=== PATIENT | female | born 1995 | race Caucasian/White ===

== ENCOUNTER 2018-02-19 12:46 | Emergency (ER) | payer BC ==
[~2018-02-19 12:46] MED LIST: AMOX-559 PO; HYDR-4309 PO; IBUP600T22 PO; PRED-1 PO; PROM-110 PO
--- NOTE | 2018-02-19 13:00 | ER Report ---
History and Physical Time Seen By MD: 13:00 Hx. of Stated Complaint: pt reports she ran into a pole on Sunday, no loc. pt reports today during her exam she started having "a migraine, neck pain, r hand/forearm numbness". HPI/ROS CHIEF COMPLAINT: Headache, neck pain, spasm in the right arm HISTORY OF PRESENT ILLNESS: 22-year-old female patient presents to emergency room with complaint of headache, neck pain and spasm in the right arm. 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 She had to run and grab something while the lights were off. All she did that she ran into a door, hit her to the left eyebrow and left cheek. Patient states that she has had pain over the weekend. She states that it was worse when she would scratch upper face. States that otherwise she felt fine. She denies having any dizziness, nausea. Patient states that she was taking a test today. She states while she stayed test her head started to hurt, her neck started to hurt, she started to have numbness and tingling in her hand which seemed to radiate up to her forearm. She states that she also has noticed that her hands are spasming. REVIEW OF SYSTEMS: Respiratory: No cough, no dyspnea. Cardiovascular: No chest pain, no palpitations. Gastrointestinal: No vomiting, no abdominal pain. Musculoskeletal: As noted above Allergies: Coded Allergies: No Known Drug Allergies (Unverified , 02/19/18) Home Meds No Active Prescriptions or Reported Meds Past Medical/Surgical History Patient denies any pertinent medical or surgical history. Reviewed Nurses Notes: Yes Hx Smoking: No Exposure to Second Hand Smoke?: No Hx Substance Use Disorder: No Constitutional Vital Sign - Last 24 Hours 02/19/18 02/19/18 12:52 15:15 Temp 97.8 Pulse 72 75 Resp 16 16 B/P (MAP) 128/71 106/61 (76) Pulse Ox 94 94 O2 Delivery Room Air Room Air Physical Exam General Appearance: The patient is alert, has no immediate need for airway protection and no current signs of toxicity. Eyes: Pupils equal and round no injection. Extra ocular movements intact. Respiratory: Chest is non tender, lungs are clear to auscultation. Cardiac: regular rate and rhythm Gastrointestinal: Abdomen is soft and non tender, no masses, bowel sounds normal. Musculoskeletal: Neck: Neck is supple and non tender. Extremities have full range of motion and are non tender. Skin: No rashes or lesions. Neuro: Patient is alert and oriented 4, cranial nerves II-12 grossly intact. Patient was able to complete 3 word recall 3/3 at zero minutes. Patient refused serial sevens. DIFFERENTIAL DIAGNOSIS: After history and physical exam differential diagnosis was considered for head injury including but not limited to concussion, skull fracture, intraparenchymal contusion, subarachnoid, subdural and epidural hematoma. Medical Decision Making Data Points Laboratory Hematology Test 02/19/18 13:19 Urine HCG, Qualitative Negative (NEGATIVE) Chemistry Test 02/19/18 13:19 Urine HCG, Qualitative Negative (NEGATIVE) Urinalysis Test 02/19/18 13:19 Urine HCG, Qualitative Negative (NEGATIVE) EKG/Imaging Imaging EXAMINATION: CT HEAD AND CERVICAL SPINE WITHOUT CONTRAST COMPARISON: None available HISTORY: head injury with muscle spasm PROCEDURE: Noncontrast CT from the vertex through the skull base and multiplanar noncontrast cervical spine. One of the following dose optimization techniques was utilized in the performance of this exam: Automated exposure control; adjustment of the mA and/or kV according to the patient's size; or use of an iterative reconstruction technique. Specific details can be referenced in the facility's radiology CT exam operational policy. FINDINGS: CT head without contrast: Brain volume: Age-appropriate. Hemorrhage/extra-axial fluid: Left anterior middle cranial fossa 2.4 x 1.7 x 1.2 cm simple appearing cystic fluid collection is most consistent with a small arachnoid cyst. No intracranial hemorrhage. Mass effect/midline shift/edema: None. Ischemia: Solo-white differentiation is preserved. Ventricles and basal cisterns: Within normal limits. Posterior fossa: Negative. Vessels: Negative. Calvarium, skull base, and scalp: Negative. Visualized sinuses and orbits: Left maxillary sinus frothy fluid, likely inflammatory/infectious. Orbital contents are within normal limits. No fracture of the visualized maxillofacial structures. CT cervical spine without contrast: Alignment: Within normal limits. Cranio-cervical junction: Within normal limits. Vertebral bodies: Within normal limits. Posterior elements: Negative. Disc spaces: Negative. Hardware: None. Soft tissues: Negative. Visualized upper chest: Negative. IMPRESSION: 1. No evidence of acute intracranial pathology. 2. No cervical spine fracture or malalignment. 3. Maxillary sinus complex fluid suggestive of inflammation. Report Dictated By: Mahesh Rodriguez MD at 02/19/2018 2:27 PM Report E-Signed By: Mahesh Rodriguez MD at 02/19/2018 2:35 PM EXAMINATION: CT HEAD AND CERVICAL SPINE WITHOUT CONTRAST COMPARISON: None available HISTORY: head injury with muscle spasm PROCEDURE: Noncontrast CT from the vertex through the skull base and multiplanar noncontrast cervical spine. One of the following dose optimization techniques was utilized in the performance of this exam: Automated exposure control; adjustment of the mA and/or kV according to the patient's size; or use of an iterative reconstruction technique. Specific details can be referenced in the facility's radiology CT exam operational policy. FINDINGS: CT head without contrast: Brain volume: Age-appropriate. Hemorrhage/extra-axial fluid: Left anterior middle cranial fossa 2.4 x 1.7 x 1.2 cm simple appearing cystic fluid collection is most consistent with a small arachnoid cyst. No intracranial hemorrhage. Mass effect/midline shift/edema: None. Ischemia: Solo-white differentiation is preserved. Ventricles and basal cisterns: Within normal limits. Posterior fossa: Negative. Vessels: Negative. Calvarium, skull base, and scalp: Negative. Visualized sinuses and orbits: Left maxillary sinus frothy fluid, likely inflammatory/infectious. Orbital contents are within normal limits. No fracture of the visualized maxillofacial structures. CT cervical spine without contrast: Alignment: Within normal limits. Cranio-cervical junction: Within normal limits. Vertebral bodies: Within normal limits. Posterior elements: Negative. Disc spaces: Negative. Hardware: None. Soft tissues: Negative. Visualized upper chest: Negative. IMPRESSION: 1. No evidence of acute intracranial pathology. 2. No cervical spine fracture or malalignment. 3. Maxillary sinus complex fluid suggestive of inflammation. Report Dictated By: Mahesh Rodriguez MD at 02/19/2018 2:27 PM Report E-Signed By: Mahesh Rodriguez MD at 02/19/2018 2:35 PM ED Course/Re-evaluation ED Course Patient was admitted to an exam room, history and physical were obtained. Differential diagnoses were considered. On examination patient is alert and oriented 4, cranial nerves II through XII grossly intact. A urine hCG was done , a CT scan of the head and cervical spine were done. The results were negative. Patient also had a negative hCG. I discussed findings with patient. I believe she does have a concussion. She states she will be traveling for a tour. I encouraged her to get plenty of rest while she is traveling. She is to limit her activity by pain. She is to follow-up with primary care provider in the next week as any concerns. Patient verbalized understanding and agreement with plan. Patient will be discharged at this time. Decision to Disposition Date: February 19, 2018 Decision to Disposition Time: 14:52 Depart Departure Latest Vital Signs Vital Signs Date Time Temp Pulse Resp B/P (MAP) Pulse Ox O2 Delivery O2 Flow Rate FiO2 02/19/18 15:15 75 16 106/61 (76) 94 Room Air 02/19/18 12:52 97.8 Impression: Primary Impression: Acute head injury without loss of consciousness Additional Impression: Mild concussion Condition: Improved Disposition: HOME OR SELF-CARE New Scripts No Active Prescriptions or Reported Meds Patient Instructions: Concussion (ED) Additional Instructions: Get plenty of rest. Limit activity by pain. Limit TV and computer time. Monitor for confusion, increased irritability, uncontrollable vomiting, worsening headache or difficulty to arouse. Return to the ER if those are to occur. Follow up with your primary care provider in the next week. Problem Qualifiers Primary Impression: Acute head injury without loss of consciousness Encounter type: initial encounter Qualified Codes: S09.90XA - Unspecified injury of head, initial encounter Additional Impression: Mild concussion Encounter type: initial encounter Loss of consciousness presence/duration: without LOC Qualified Codes: S06.0X0A - Concussion without loss of consciousness, initial encounter MESSI SANCHEZ February 19, 2018 13:00
--- NOTE | 2018-02-19 14:39 | RADIOLOGY IMAGING REPORT ---
FACILITY: [facility] - [place] PATIENT NAME: Betsey Alexander : 1995 MR: [id number] V: [id number] EXAM DATE: ORDERING PHYSICIAN: MESSI SANCHEZ TECHNOLOGIST: Location: [facility] [place] Patient: Betsey Alexander : 1995 Visit/Account:[id number] Date of Sevice: 02/19/2018 EXAMINATION: CT HEAD AND CERVICAL SPINE WITHOUT CONTRAST COMPARISON: None available HISTORY: head injury with muscle spasm PROCEDURE: Noncontrast CT from the vertex through the skull base and multiplanar noncontrast cervical spine. One of the following dose optimization techniques was utilized in the performance of this exa m: Automated exposure control; adjustment of the mA and/or kV according to the patient's size; or use of an iterative reconstruction technique. Specific details can be referenced in the facility's rad iology CT exam operational policy. FINDINGS: CT head without contrast: Brain volume: Age-appropriate. Hemorrhage/extra-axial fluid: Left anterior middle cranial fossa 2.4 x 1.7 x 1.2 cm simple appearing cystic fluid collection is most consistent with a small arachnoid cyst. No intracranial hemorrhage. Mass effect/midline shift/edema: None. Ischemia: Solo-white differentiation is preserved. Ventricles and basal cisterns: Within normal limits. Posterior fossa: Negative. Vessels: Negative. Calvarium, skull base, and scalp: Negative. Visualized sinuses and orbits: Left maxillary sinus frothy fluid, likely inflammatory/infectious. Orb ital contents are within normal limits. No fracture of the visualized maxillofacial structures. CT cervical spine without contrast: Alignment: Within normal limits. Cranio-cervical junction: Within normal limits. Vertebral bodies: Within normal limits. Posterior elements: Negative. Disc spaces: Negative. Hardware: None. Soft tissues: Negative. Visualized upper chest: Negative. IMPRESSION: 1. No evidence of acute intracranial pathology. 2. No cervical spine fracture or malalignment. 3. Maxillary sinus complex fluid suggestive of inflammation. Report Dictated By: Mahesh Rodriguez MD at 02/19/2018 2:27 PM Report E-Signed By: Mahesh Rodriguez MD at 02/19/2018 2:35 PM WSN:[id number]
--- NOTE | 2018-02-19 14:39 | RADIOLOGY IMAGING REPORT ---
FACILITY: [facility] - [place] PATIENT NAME: Betsey Alexander : 1995 MR: [id number] V: [id number] EXAM DATE: ORDERING PHYSICIAN: MESSI SANCHEZ TECHNOLOGIST: Location: [facility] [place] Patient: Betsey Alexander : 1995 Visit/Account:[id number] Date of Sevice: 02/19/2018 EXAMINATION: CT HEAD AND CERVICAL SPINE WITHOUT CONTRAST COMPARISON: None available HISTORY: head injury with muscle spasm PROCEDURE: Noncontrast CT from the vertex through the skull base and multiplanar noncontrast cervical spine. One of the following dose optimization techniques was utilized in the performance of this exa m: Automated exposure control; adjustment of the mA and/or kV according to the patient's size; or use of an iterative reconstruction technique. Specific details can be referenced in the facility's rad iology CT exam operational policy. FINDINGS: CT head without contrast: Brain volume: Age-appropriate. Hemorrhage/extra-axial fluid: Left anterior middle cranial fossa 2.4 x 1.7 x 1.2 cm simple appearing cystic fluid collection is most consistent with a small arachnoid cyst. No intracranial hemorrhage. Mass effect/midline shift/edema: None. Ischemia: Solo-white differentiation is preserved. Ventricles and basal cisterns: Within normal limits. Posterior fossa: Negative. Vessels: Negative. Calvarium, skull base, and scalp: Negative. Visualized sinuses and orbits: Left maxillary sinus frothy fluid, likely inflammatory/infectious. Orb ital contents are within normal limits. No fracture of the visualized maxillofacial structures. CT cervical spine without contrast: Alignment: Within normal limits. Cranio-cervical junction: Within normal limits. Vertebral bodies: Within normal limits. Posterior elements: Negative. Disc spaces: Negative. Hardware: None. Soft tissues: Negative. Visualized upper chest: Negative. IMPRESSION: 1. No evidence of acute intracranial pathology. 2. No cervical spine fracture or malalignment. 3. Maxillary sinus complex fluid suggestive of inflammation. Report Dictated By: Mahesh Rodriguez MD at 02/19/2018 2:27 PM Report E-Signed By: Mahesh Rodriguez MD at 02/19/2018 2:35 PM WSN:[id number]
[2018-02-19 15:15] VITALS: BP 106/61
== END 2018-02-19 15:16 | disposition home or self-care (01) ==
LOC: ER 12:59
DX: S09.90XA Unspecified injury of head, initial encounter (principal); S06.0X0A Concussion without loss of consciousness, initial encounter
CPT/HCPCS: 70450; 72125; 81025; 99283